=== PATIENT | female | born 1995 | race Two or more races ===

== ENCOUNTER 2024-03-26 05:14 | Emergency (ER) | payer OTHER ==
[~2024-03-26] VITALS: Ht 152.4 cm; Wt 82.0 kg
[2024-03-26 05:26] VITALS: PULSE 115; RESP 16; O2SAT 99
--- NOTE | 2024-03-26 05:27 | ED.PDOC ---
History of Present Illness HPI Comments 29-year-old female came to ER due ti seizure like activity. Patient had a witnessed seizure like activity while she was working upstairs. Noted right periorbital hematoma as she fell. Unsure whether the seizure or the fall/ head trauma came first. Patient still confused and disoriented (post ictal? ) at this time of care. According to workmate, patient has no history of seizures. Blood sugar on scene was 151. Chief Complaint: Seizure Time Seen by MD: 05:27 Reviewed Notes: Nurses Notes Allergies: Coded Allergies: NO KNOWN ALLERGIES (Unverified , 03/26/24) Information Source: Patient Mode of Arrival: Wheelchair Severity: Moderate Timing: Minutes Duration: Since onset Past Medical History PAST MEDICAL HISTORY: Pt Confused Surgical History: Pt Confused SAFETY SUPERVISOR History: Pt Confused Family History Family History: Pt Confused Social History Smoker: Pt Confused Alcohol: Pt Confused Drugs: Pt Confused Lives In: Pt Confused Unable to Obtain due to: Altered Mental Status, Other (Patient still confused and disoriented) Physical Exam General Appearance: No Apparent Distress, Normal HEENT: Normal ENT Inspection, Pharynx Normal, TMs Normal Neck: Full Range of Motion, Non-Tender, Normal, Normal Inspection Respiratory: Chest Non-Tender, Lungs Clear, No Accessory Muscle Use, No Respiratory Distress, Normal Breath Sounds Cardiovascular: No Edema, No JVD, No Murmur, No Gallop, Normal Peripheral Pulses, Regular Rate/Rhythm Breast Exam: Deferred Gastrointestinal: No Organomegaly, Non Tender, No Pulsatile Mass, Normal Bowel Sounds, Soft Genitalia: Deferred Pelvic: Deferred Rectal: Deferred Extremities: No calf tenderness, Normal capillary refill, Normal inspection, Normal range of motion, Non-tender, No pedal edema Musculoskeletal : Apperance: Normal Neurologic: Alert, financial services counselor II-XII nml as Tested, No Motor Deficits, Normal Affect, Normal Mood, No Sensory Deficits Cerebellar Function: Normal Reflexes: Normal Skin: Dry, Normal Color, Warm Lymphatic: No Adenopathy Was a procedure done? Was a procedure done?: No Differential Dx Considerations may include: Head injury, laceration, seizures, electrolyte imbalance, arrhythmia, syncope X-Ray, Labs, Meds, VS Vital Signs Date Time Temp Pulse Resp B/P (MAP) Pulse Ox O2 Delivery O2 Flow Rate FiO2 03/26/24 11:42 97.8 104 14 129/76 (93) 96 97.8 03/26/24 10:00 89 12 129/76 (93) 94 03/26/24 07:53 86 17 96 Room Air* 0 21 03/26/24 07:45 97.1 86 17 123/78 (93) 96 97.1 03/26/24 05:52 99 Room Air* 0 21 03/26/24 05:26 115 16 99 Venturi Mask 15 N/A 03/26/24 05:21 98.2 115 16 102/70 (81) 99 98.2 03/26/24 05:15 98.2 112 18 102/70 (81) 95 Lab Test 03/26/24 10:43 03/26/24 08:30 03/26/24 07:34 03/26/24 06:03 Range/Units Troponin I High Sensitivity 210 *H 147 *H 101 *H </=34 ng/L White Blood Count 17.0 H 4.4-10.8 10^3/uL Red Blood Count 5.30 H 4.0-5.20 10^6/uL Hemoglobin 13.8 12.2-16.2 g/dL Hematocrit 41.6 36.0-46.0 % Mean Corpuscular Volume 78.5 L 80.0-100.0 fL Mean Corpuscular Hemoglobin 26.0 L 28.0-32.0 pg Mean Corpuscular Hemoglobin Concent 33.2 32.0-36.0 g/dL Red Cell Distribution Width 15.0 H 11.8-14.3 % Platelet Count 537 H 140-450 10^3/uL Mean Platelet Volume 7.7 6.9-10.8 fL Neutrophils (%) (Auto) 79.7 37.0-80.0 % Lymphocytes (%) (Auto) 14.9 10.0-50.0 % Monocytes (%) (Auto) 4.9 0.0-12.0 % Eosinophils (%) (Auto) 0.1 0.0-7.0 % Basophils (%) (Auto) 0.4 0.0-2.0 % Neutrophils # (Auto) 13.5 H 1.6-8.6 10 ^3/uL Lymphocytes # (Auto) 2.5 0.4-5.4 10 ^3/uL Monocytes # (Auto) 0.8 0-1.3 10 ^3/uL Eosinophils # (Auto) 0 0-0.8 10 ^3/uL Basophils # (Auto) 0.1 0-0.2 10 ^3/uL Nucleated Red Blood Cells 0.0 % Sodium Level 139 136-145 mmol/L Potassium Level 4.1 3.5-5.1 mmol/L Chloride Level 104 98-107 mmol/L Carbon Dioxide Level 25 20-31 mmol/L Anion Gap 10 5-15 Blood Urea Nitrogen 11 9-23 mg/dL Creatinine 0.76 0.550-1.02 mg/dL Glomerular Filtration Rate Calc 107 >90 mL/min BUN/Creatinine Ratio 14.5 10.0-20.0 Serum Glucose 128 H 74-106 mg/dL Calcium Level 10.5 H 8.7-10.4 mg/dL Urine Color Yellow Yellow Urine Clarity Clear Clear Urine pH 6.0 5.0-9.0 Urine Specific [place] 1.022 1.001-1.035 Urine Protein 1+ H Negative Urine Ketones 1+ H Negative Urine Blood 1+ H Negative /uL Urine Nitrite Negative Negative Urine Bilirubin Negative Negative Urine Urobilinogen Normal Negative mg/dL Urine Leukocyte Esterase Negative Negative /uL Urine RBC 9 0 - 4 /hpf Urine Microscopic WBC 1 0-5 /HPF Urine Squamous Epithelial Cells Few <5 /hpf Urine Bacteria None seen None Seen /hpf Urine Mucus Few None Seen Urine Glucose Normal Normal mg/dL Urine Test Negative Negative Urine Opiates Screen Neg NEGATIVE Urine Fentanyl Screen Neg NEGATIVE Urine Barbiturates Screen Neg NEGATIVE Urine Phencyclidine Screen Neg NEGATIVE Urine Amphetamines Screen Neg NEGATIVE Urine Benzodiazepines Screen Neg NEGATIVE Urine Cocaine Screen Neg NEGATIVE Urine Cannabinoids Screen Pos NEGATIVE Current Medications Medications (Trade) Dose Ordered Sig/Silvina Route Start Time Stop Time Status Last Admin Levetiracetam 100 ml @ 400 mls/hr ONCE ONCE IV 03/26/24 09:00 03/26/24 09:14 DC 03/26/24 09:12 Aspirin 324 mg ONCE ONCE PO 03/26/24 09:15 03/26/24 09:16 DC 03/26/24 09:11 X-Ray, Labs, Meds, VS Comment This 29-year-old female who was brought in to our department after having what was believed to be a witnessed grand mal seizure. Patient was at work in her usual state of health this morning when she went to the ground and convulsed. Here, the patient was postictal and slightly somnolent at presentation. Her workup was significant for contusion to the scalp and elevated troponin. There is a possibility she had a cardiac arrhythmia causing her to syncopized and hit the floor. Her reached out to [facility]. They will transfer the patient out for further workup management of her syncope and possible NSTEMI. RP number: [id number] Time of 1ST Reevaluation: 05:22 Reevaluation 1ST: Unchanged Patient Education/Counseling: Diagnosis, Treatment, Other (Patient confused and disoriented) Family Education/Counseling: No Family Present Departure 1 Departure Time of Disposition: 05:26 (Patient has syncopal episode found to have an elevated troponin. Patient was transferred to [place]) Impression: Primary Impression: Syncope and collapse Additional Impression: Elevated troponin Disposition: 02 SHORT TERM HOSPITAL Condition: Guarded Critical Care Note Critical Care Time?: No Stability Stability form required: No Heart Score Heart Score: Heart Score Response (Comments) Value History N/A 0 EKG N/A 0 Age N/A 0 Risk Factors N/A 0 Troponin N/A 0 Total 0 I personally scribed for DONG SIMONS MD ([email or web address]) on 03/26/24 at 05:27. Electronically submitted by Jb Love ([email or web address]). DONG SIMONS MD Mar 26, 2024 05:27 FREDRICK BRANCH MD Mar 26, 2024 08:58
[2024-03-26 05:52] VITALS: O2SAT 99
--- NOTE | 2024-03-26 05:54 | DVH ---
EXAM: XR Chest, 1 View CLINICAL INDICATION: seizure TECHNIQUE: Frontal view of the chest. COMPARISON: None FINDINGS: LUNGS AND PLEURAL SPACES: Low lung volumes. HEART: Cardiomegaly with mild congestion. MEDIASTINUM: Unremarkable. Normal mediastinal contour. BONES/JOINTS: Unremarkable. No acute fracture. OTHER FINDINGS: . None. . .. IMPRESSION: Cardiomegaly with mild congestion. Findings may be accentuated by low lung volumes.
--- NOTE | 2024-03-26 05:54 | DVH ---
EXAM: CT HEAD WITHOUT CONTRAST INDICATION: seizure TECHNIQUE: CT of the head without intravenous contrast. Coronal and sagittal reformatted images are submitted. Radiation Dose : 1. Head: CT Dose: CTDI volume is 56.2 mGy. Dose-length product is 992.7 mGy*cm The dose indicators for CT are the volume Computed Tomography (CT) Dose Index (CTDIvol) and the Dose Length Product (DLP), and are measured in units of mGy and mGy-cm, respectively. These indicators are not patient dose, but values generated from the CT scanner acquisition factors. The report includes radiation exposure data for exposures received during this examination. All CT scans at this medical facility are performed using dose modulation techniques as appropriate to a performed exam including the following: Automated exposure control was utilized; adjustment of the MA and/or KV according to patient size; and use of iterative reconstruction technique. COMPARISON: None FINDINGS: There is no evidence of acute intracranial hemorrhage, extra-axial collection, mass effect, midline s hift, herniation or hydrocephalus. The ventricles, sulci and cisterns are age appropriate. The rocha-white differentiation is intact. The visualized paranasal sinuses and mastoid air cells are clear. No depressed calvarial fracture. Right periorbital soft tissue swelling. IMPRESSION: 1. No evidence of acute intracranial abnormality. 2. Right periorbital soft tissue swelling.
[2024-03-26 06:08] LABS: Urine Bacteria None Seen /hpf (None Seen)
[2024-03-26 06:28] LABS: Urine Blood 1+ /uL (Negative); Urine Clarity Clear (Clear); Urine Color Yellow (Yellow); Urine Mucus FEW (None Seen); Urine Protein, UAD 1+ (Negative); Urine Specific Gravity 1.022 (1.001-1.035); Urine Squamous Epithelial Cell FEW /hpf (<5); Urine Urobilinogen Normal (Negative); Urine WBC 1 /HPF (0-5)
[2024-03-26 07:52] LABS: Basophils # (auto) 0.1 10 ^3/uL (0-0.2); Basophils % (auto) 0.4 % (0.0-2.0); Eosinophils # (auto) 0 10 ^3/uL (0-0.8); Eosinophils % (auto) 0.1 % (0.0-7.0); Hematocrit 41.6 % (36.0-46.0); Hemoglobin 13.8 g/dL (12.2-16.2); Lymphocytes # (auto) 2.5 10 ^3/uL (0.4-5.4); Lymphocytes % (auto) 14.9 % (10.0-50.0); Mean Corpuscular Hgb Conc. 33.2 g/dL (32.0-36.0); Mean Corpuscular Volume 78.5 fL (80.0-100.0); Monocytes # (auto) 0.8 10 ^3/uL (0-1.3); Monocytes % (auto) 4.9 % (0.0-12.0); Neutrophils # (auto) 13.5 10 ^3/uL (1.6-8.6); Neutrophils % (auto) 79.7 % (37.0-80.0); Platelet Count (auto) 537 10^3/uL (140-450)
[2024-03-26 07:53] VITALS: PULSE 86; RESP 17; O2SAT 96
[2024-03-26 07:53] LABS: Chloride 104 mmol/L (98-107); Potassium 4.1 mmol/L (3.5-5.1); Sodium 139 mmol/L (136-145)
[2024-03-26 07:54] LABS: Anion Gap 10 (5-15); Carbon Dioxide 25 mmol/L (20-31)
[2024-03-26 07:58] LABS: Calcium 10.5 mg/dL (8.7-10.4)
[2024-03-26 08:00] LABS: BUN/Creatinine Ratio 14.5 (10.0-20.0); Blood Urea Nitrogen 11 mg/dL (9-23)
[2024-03-26 08:01] LABS: Glucose 128 mg/dL (74-106)
[2024-03-26] MEDS: ASPirin 81 mg TAB PO ONE (09:11)
[2024-03-26] MEDS: levETIRAcetam 1000 mg/100ml 100 ML IV ONE (09:12)
[2024-03-26 10:45] LABS: Cannabinoid Screen, Urine Pos (NEGATIVE)
[2024-03-26 10:46] LABS: Amphetamine Screen, Urine Neg (NEGATIVE); Barbiturate Scree,Urine Neg (NEGATIVE); Benzodiazephine Screen, Urine Neg (NEGATIVE); Cocaine Screen, Urine Neg (NEGATIVE); Opiate Scree,Urine Neg (NEGATIVE); Phencyclidine Screen, Urine Neg (NEGATIVE)
[2024-03-26 11:42] VITALS: BP 129/76; PULSE 104; RESP 14; TEMP 97.8; O2SAT 96
== END 2024-03-26 12:16 | disposition short-term general hospital (02) ==
LOC: EEVIPCON 05:18 → ER 05:18
DX: R56.9 Unspecified convulsions (principal); R55 Syncope and collapse; R79.89 Other specified abnormal findings of blood chemistry
CPT/HCPCS: 36415; 70450; 71045; 80048; 80307; 81001; 81025; 84484; 85025; 96365; 99285; J1953